=== PATIENT | female | born 1985 | race Caucasian/White ===

== ENCOUNTER 2019-10-19 19:29 | Emergency (ER) | payer SELFPAY ==
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
[2019-10-19 20:12] LABS: Urine Appearance Clear; Urine Bilirubin Negative (Negative); Urine Blood Negative (Negative); Urine Color Yellow; Urine Glucose Negative (Negative); Urine Ketones Negative (Negative); Urine Nitrite Negative (Negative); Urine Protein Negative (Negative); Urine Specific Gravity 1.014 (1.010-1.030); Urine Urobilinogen Negative (Negative)
[2019-10-19] MEDS ORDERED: oxyCODONE/Acetamin 5/325 MG* TAB PO ONE (20:25)
[2019-10-19 20:26] LABS: ABS Eosinophils 0.1 10^3/ul (0-0.6); ABS Lymphocytes 2.3 10^3/ul (1.0-4.8); ABS Monocytes 0.9 10^3/ul (0-0.8); ABS Neutrophils 7.9 10^3/ul (1.5-7.7); Hematocrit 36 % (35-47); Hemoglobin 12.4 g/dL (12.0-16.0); Lymphocyte % 20.3 %; Mean Corpuscular HGB Conc 35 g/dL (31-36); Mean Corpuscular Hemoglobin 32 pg (27-31); Mean Corpuscular Volume 92 fL (80-97); Mean Platelet Volume 6.7 fL (7.4-10.4); Platelet Count 396 10^3/uL (150-450); Red Cell Distribution Width 13 % (10-15); White Blood Count 11.1 10^3/uL (3.5-10.8)
[2019-10-19] MEDS ORDERED: LORazepam TAB(*) 1 MG PO ONE (20:27)
[2019-10-19 20:43] LABS: ALT 11 U/L (7-52); AST 17 U/L (13-39); Albumin 4.2 g/dL (3.2-5.2); Albumin/Globulin Ratio 1.4 (1-3); Alkaline Phosphatase 77 U/L (34-104); Anion Gap 8 mmol/L (2-11); BUN/Creatinine Ratio 16.3 (8-20); Blood Urea Nitrogen 16 mg/dL (6-24); CO2 Carbon Dioxide 26 mmol/L (22-32); Calcium 9.4 mg/dL (8.6-10.3); Chloride 103 mmol/L (101-111); EGFR African American 78.1 (>60); EGFR Non-African American 64.6 (>60); Globulin 2.9 g/dL (2-4); Glucose 98 mg/dL (70-100); Potassium 3.8 mmol/L (3.5-5.0); Sodium 137 mmol/L (135-145); Total Protein 7.1 g/dL (6.4-8.9)
[2019-10-19 20:50] LABS: HCG Pregnancy < 0.60 mIU/mL
[2019-10-19 22:39] VITALS: BP 140/73
== END 2019-10-19 22:37 | disposition home or self-care (01) ==
LOC: ED 19:29
DX: L03.116 Cellulitis of left lower limb (principal); F31.9 Bipolar disorder, unspecified; Z79.899 Other long term (current) drug therapy; Z88.1 Allergy status to other antibiotic agents
CPT/HCPCS: 36415; 80053; 81003; 83605; 84702; 85025; 99282; A9270-GY

== ENCOUNTER 2019-10-22 11:39 | Emergency (ER) | payer SELFPAY ==
--- NOTE | 2019-10-22 11:55 | ED ---
Lower Extremity - HPI Summary HPI Summary: 34-year-old female with significant past medical history of an ulcer to her medial distal thigh for months presents emergency department today due to her wound clinic appointment being canceled due to weather. She states she is in exquisite pain at the site of the ulcer and is requesting wound care. She states she was recently seen in this emergency department for cellulitis which developed as a result of her wound and placed on Bactrim for 2 weeks. She is also complaining of her leg having increased pain with some mild numbness and tingling. She states other than her ulcer she feels well. She denies fever, chest pain, abdominal pain, pain with urination, rash, chest bowel movements, nausea, vomiting, diarrhea. - History of Current Complaint Chief Complaint: EDExtremityLower Stated Complaint: GENERAL ILLNESS Time Seen by Provider: 10/22/19 11:54 Hx Obtained From: Patient Mechanism Of Injury: Blunt Trauma Onset of Pain: Prior to Arrival Onset/Duration: Weeks Severity Initially: Mild Severity Currently: Moderate Pain Intensity: 3 Pain Scale Used: 0-10 Numeric Timing: Constant Location: Is Discrete @ - Left lower extremity near ulcer Character Of Pain: Aching, Throbbing Associated Signs And Symptoms: Positive: Swelling, Redness. Negative: Bruising , Fever, Weakness Aggravating Factor(s): Ambulation, Movement, Weight Bearing, Stairs Alleviating Factor(s): Rest Able to Bear Weight: Yes - Allergies/Home Medications Allergies/Adverse Reactions: Allergies Allergy/AdvReac Type Severity Reaction Status Date / Time doxycycline Allergy Nausea And Verified 10/22/19 11:43 Vomiting Home Medications: Home Medications Ibuprofen TAB* [Motrin TAB* 800 MG] 800 mg PO Q6H PRN 10/22/19 [History Confirmed 10/22/19] PARoxetine HCL TAB* [Paxil TAB*] 30 mg PO DAILY 10/22/19 [History Confirmed 01/09] QUEtiapine TAB* [Seroquel 100 MG *] 50 mg PO BEDTIME 10/22/19 [History Confirmed 10/22/19] lamoTRIgine TAB(*) [LaMICtal TAB(*)] 50 mg PO BEDTIME 10/22/19 [History Confirmed 10/22/19] PMH/Surg Hx/FS Hx/Imm Hx Endocrine/Hematology History: Denies: Hx Diabetes Cardiovascular History: Denies: Hx Hypertension Psychiatric History: Reports: Hx Bipolar Disorder Infectious Disease History: No Infectious Disease History: Denies: Traveled Outside the [place] in Last 30 Days - Family History Known Family History: Negative: Seizure Disorder - Social History Alcohol Use: None Substance Use Type: Reports: None Smoking Status (MU): Never Smoked Tobacco Review of Systems Constitutional: Negative Eyes: Negative ENT: Negative Cardiovascular: Negative Respiratory: Negative Gastrointestinal: Negative Genitourinary: Negative Positive: Myalgia, Edema Skin: Negative Neurological: Negative Psychological: Normal All Other Systems Reviewed And Are Negative: Yes Physical Exam - Summary Physical Exam Summary: Inspection of the left lower extremity reveals significant edema from the knee to the toes. Dorsalis pedis and posterior tibialis pulse is difficult to palpate however it is noted with bedside Doppler to be brisk. Capillary refill is brisk bilaterally on the lower extremity. Patient has full strength and range of motion lower extremity as bilaterally. There is an approximately 8 cm in diameter unstageable ulcer with black eschar covering it noted to the medial aspect of the distal left thigh near approximation to the knee joint. There is no evidence of drainage or foul smelling odor. Palpation of the skin reveals mild warmth and induration surrounding the ulcer. Patient is neurovascularly intact although she complains of mild paresthesia. Triage Information Reviewed: Yes Vital Signs On Initial Exam: Initial Vitals Temp Pulse Resp BP Pulse Ox 97.1 F 97 17 180/112 100 10/22/19 11:40 10/22/19 11:40 10/22/19 11:40 10/22/19 11:40 10/22/19 11:40 Vital Signs Reviewed: Yes Appearance: Positive: Well-Appearing, No Pain Distress, Well-Nourished, Obese Skin: Positive: Warm, Skin Color Reflects Adequate Perfusion Head/Face: Positive: Normal Head/Face Inspection Eyes: Positive: EOMI, PRICE ENT: Positive: Hearing grossly normal Respiratory/Lung Sounds: Positive: Clear to Auscultation, Breath Sounds Present Cardiovascular: Positive: RRR, S1, S2 Abdomen Description: Positive: Nontender, Soft. Negative: Distended, Guarding Bowel Sounds: Positive: Present Musculoskeletal: Positive: Strength/ROM Intact, Edema Left. Negative: Moses Sign Left, Moses Sign Right Neurological: Positive: Sensory/Motor Intact, Alert, Oriented to Person Place, Time, Normal Gait, Speech Normal Psychiatric: Positive: Normal AVPU Assessment: Alert Procedures - Sedation Patient Received Moderate/Deep Sedation with Procedure: No Diagnostics - Vital Signs Vital Signs Temp Pulse Resp BP Pulse Ox 10/22/19 11:40 97.1 F 97 17 180/112 100 - Laboratory Lab Statement: Any lab studies that have been ordered have been reviewed, and results considered in the medical decision making process. Lower Extremity Course/Dx - Course Course Of Treatment: Patient was evaluated in the emergency Department for and also to her left leg. The patient was seen and examined she was comfortable, vitals are stable, she is afebrile. General surgery was consulted for debridement of the wound. After Dr. Simeon examined the wound he wanted to have orthopedics involved in the case. Dr. Stack orthopedic surgeon was consulted and this patient was noted to him. 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 Patient was informed and her wound was dressed. She was told to follow-up with her primary care physician for referral to plastic surgery for debridement. She was given a prescription for 2 days of Percocet 5/325 for her pain while she follows up. She was told to return to the emergency department immediately if she develops any new or worsening symptoms. - Diagnoses Differential Diagnosis/HQI/PQRI: Positive: Cellulitis, Compartment Syndrome, Septic Arthritis, Other - Ulcer, jackson-nuno lesion Provider Diagnoses: Ulcer - Physician Notifications Discussed Care Of Patient With: Isrrael Luis Blanco - agreed to provide ulcer in the emergency department. She believed there is no signs of systemic infection at this time. Time Discussed With Above Provider: 14:14 Discharge ED - Sign-Out/Discharge Documenting (check all that apply): Patient Departure - Discharge Plan Condition: Stable Disposition: HOME Prescriptions: oxyCODONE/Acetamin 5/325 MG* [Percocet 5/325 TAB*] 1 tab PO Q4H PRN #12 tab MDD 6 PRN Reason: Pain - Severe Patient Education Materials: Chronic Wound Care (ED) Referrals: Julio SOSA,Joanne Riojas [Primary Care Provider] - 1 Day Additional Instructions: You were seen in the emergency department for evaluation of your wound. General surgery and orthopedic surgery were consulted and they believed it is a Jackson-nuno lesion. Dr. Stack the orthopedic surgeon believes this needs to be evaluated by a plastic surgeon. Please follow up with her primary care provider tomorrow for referral to a plastic surgeon for debridement of your wound in an operating room. Please return to the emergency department if you develop any new or worsening symptoms. - Billing Disposition and Condition Condition: STABLE Disposition: Home Consult Consult: Dr. Stack's consult on the patient to rule out compartment syndrome and to discuss her ulcer. She states this patient is known to him and he believes she has a Jackson-nuno lesion. She stated this lesion is not an emergency and does not require intervention at this time. She believes she needs to follow up with her primary care provider for referral to a plastic surgeon for debridement in an operating room
[2019-10-22] MEDS ORDERED: HYDROcodone/ACETAMIN 5-325 MG* 1 TAB PO ONE (12:45)
[2019-10-22] MEDS ORDERED: Lidocaine 1% INJ* 10 MG/ML 30 ML SDV INJ ONE (14:16)
[2019-10-22] MEDS ORDERED: Bacitracin OINTMENT* 0.5% 0.5 oz TUBE TOPICAL ONE (15:52)
[2019-10-22 16:18] VITALS: BP 133/90
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
== END 2019-10-22 16:18 | disposition home or self-care (01) ==
LOC: ED 11:39
DX: L97.129 Non-pressure chronic ulcer of left thigh with unspecified severity (principal); Z79.899 Other long term (current) drug therapy; Z88.1 Allergy status to other antibiotic agents
CPT/HCPCS: 99282; A9270-GY